=== PATIENT | male | born 1970 | race Caucasian/White ===

== ENCOUNTER 2017-04-28 07:33 | Day surgery (SDC) | payer OTHER ==
--- NOTE | 2017-04-24 13:07 | HP ---
ADMISSION HISTORY AND PHYSICAL: DATE OF SURGERY: 04/28/17 PATIENT OF: Dr. Geo Fortune. (DICTATED BY JONES MUNOZ) CHIEF COMPLAINT: Left inguinal hernia and umbilical hernia. HISTORY OF PRESENT ILLNESS: Mr. Costello is a pleasant 47-year-old gentleman who was seen in the office earlier this month to discuss hernia repair. The patient apparently had left groin hernia that he noticed for the last 2 years for which he was self referred to get it repaired. The patient notes that he had the hernia for quite a while and noticed that it has gotten bigger lately but denied any changes in the bowel habits, abdominal distension, or any other associated symptoms. He had a right inguinal hernia repaired about 10 years ago. He was also noted to have an umbilical hernia on exam for which a CT scan of the abdomen and pelvis was obtained, a week after his initial visit. The patient was seen by Dr. Fortune after his CT scan and the patient was found to have a third spigelian hernia on the left side for which he returned to the office to discuss hernia repair. Since his last office visit, the patient denies any changes. He is still able to reduce his left groin hernia and noticed that it bulged more often when he strains or lifts anything heavy at work. He still is able to move his bowel and denies any changes in his bowel habits, nausea, vomiting or any other associated symptoms. He presented to the office today to discuss surgery. 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 He is otherwise an extremely healthy middle-aged gentleman with no significant past medical history. PAST MEDICAL HISTORY: Essentially unremarkable. He denies any history of lung , liver, heart or kidney disease. PAST SURGICAL HISTORY: Significant for: 1. Right inguinal hernia repair with mesh, approximately 10 years ago. 2. He also reports for separate right knee arthroscopic surgeries back at high school and college time since he was athletic, playing football and baseball. CURRENT MEDICATIONS: None. ALLERGIES: He has no known drug allergies. SOCIAL HISTORY: The patient is a current smoker who smokes about half-a-pack per day for the past 10 years. He consumes alcohol on a regular basis. He denies illicit drug use. FAMILY HISTORY: Noncontributory. REVIEW OF SYSTEMS: See HPI, otherwise negative. He denies any headache, dizziness, blurred vision, or syncope. No chest pain, cough, wheezes, or shortness of breath. No palpitation or history of pneumonia, no back pain, flank pain, dysuria, hematuria or urinary frequency. He admits to left inguinal hernia as well as umbilical hernia with occasional mild tenderness to the area, but still able to reduce the hernia and denies any changes in the bowel habits, nausea, vomiting. No fever, chills, night sweats or recent weight loss. PHYSICAL EXAMINATION GENERAL: He is a pleasant healthy appearing 47-year-old gentleman in no acute distress or discomfort. VITAL SIGNS: Vitals revealed a blood pressure of 132/90, a temperature of 97.4 , pulse of 76, respirations of 16 and BMI of 27. HEENT: Sclerae anicteric. PERRLA, EOMs intact. Oropharynx is pink and moist with no exudate. NECK: Supple, trachea midline. No cervical adenopathy, thyromegaly or JVD. LUNGS: Clear to auscultation bilaterally. No rales, wheezes or rhonchi noted. HEART: Regular rate and rhythm. Normal S1 and S2 without rubs, murmurs or gallops. BACK: Normal curvature. No CVA tenderness. ABDOMEN: Soft, nontender and nondistended. There is an obvious left groin hernia noted that was moderate in size and easily reducible. There is very mild tenderness noted upon reducing the hernia. There is also a questionable hernia just above the left groin line that was again confirmed to be a left spigelian hernia on CT scan obtained earlier this month. There is also a small reducible fat containing umbilical hernia that was noted. The right inguinal hernia was a well- healed oblique incision and no evidence of recurrent hernia or swelling. EXTREMITIES: Without cyanosis, clubbing or edema. NEUROLOGIC: Grossly intact. RECTAL: Deferred at this time. IMPRESSION: 1. A 47-year-old gentleman with left inguinal hernia, moderate in size which is reducible and shows no evidence of incarceration of strangulation. 2. Umbilical hernia, small, and appears to be a fat containing. 3. A CT scan with evidence of spigelian hernia in the left abdominal wall. PLAN: We went on to discuss with the patient the findings of his physical exam as well as his CT scan that recommendation for him was to undergo a laparoscopic repair of the left inguinal hernia as well as the left spigelian hernia. We also discussed fixing the umbilical hernia which appears to be very small and could be fixed as a part of a trocar incision. He is well informed and wishes to proceed with the surgery as outlined. The rationale indications, risks, and benefits of performing the hernia repairs were discussed with him today. Risks include but not limited to infection, bleeding, or injury to adjacent structures. He also understands weight lifting limitation that would be expected after such a surgery, which would include 2 to 6 weeks limitation of weight lifting. We discussed with him all possible complications also related to anesthesia. The patient is again well informed and wishes to proceed with surgery and we will follow him up a week after his surgery. [facility] JONES BLEDSOE [id number]/CPS #: [id number] BINTA
[~2017-04-28 07:33] MED LIST: Buffered Lidocaine 0.9% SYRIN* 5 ML/SYR SYRINGE INTRADERM ONE; Buffered Lidocaine 0.9% SYRIN* 5 ML/SYR SYRINGE ONE; Famotidine IV* 10 MG/ML 2 ML (20 mg) IV ONE; Famotidine IV* 10 MG/ML 2 ML (20 mg) ONE; ceFAZolin 2 GM PREMIX(*) 2 GM/50 ML BAG IVPB ONE
[2017-04-28] MEDS ORDERED: Lidocaine 2% PF * 5 ML VIAL ONE (08:25)
[2017-04-28] MEDS ORDERED: Ketorolac INJ* 30 MG/ML 1 ML VIAL ONE (08:25)
[2017-04-28] MEDS ORDERED: Ondansetron INJ* 2 MG/ML VIAL ONE (08:25)
[2017-04-28] MEDS ORDERED: Midazolam* 1 MG/ML 5 ML VIAL (5 MG) ONE (08:25)
[2017-04-28] MEDS ORDERED: Succinylcholine* 20 MG/ML 10 ML VIAL ONE (08:25)
[2017-04-28] MEDS ORDERED: Dexamethasone IV* 4 MG/ML 1 ML (4 MG) ONE (08:25)
[2017-04-28] MEDS ORDERED: Propofol* 10 MG/ML 20 ML BTL IV PUSH ONE (08:25)
[2017-04-28] MEDS ORDERED: fentaNYL* 50 MCG/ML 2 ML VIAL (100 MCG VIAL) ONE ×2 (08:26→09:50)
[2017-04-28] MEDS ORDERED: Bupivacaine 0.25% EPI 200,000* 30 ML SDV ONE ×2 (09:02→13:36)
[2017-04-28] MEDS ORDERED: Rocuronium* 10 MG/ML VIAL ONE ×3 (09:29→11:37)
[2017-04-28] MEDS ORDERED: Midazolam* 1 MG/ML 2 ML VIAL (2 MG) ONE (09:37)
[2017-04-28] MEDS ORDERED: DiMENhydriNATE IV* 50 MG/ML VIAL IV PUSH PRN (10:09)
[2017-04-28] MEDS ORDERED: fentaNYL* 50 MCG/ML 5 ML VIAL (250 MCG VIAL) ONE (10:43)
[2017-04-28] MEDS ORDERED: HYDROmorphone* 1 MG/ML 1 ML SYR ONE ×3 (10:46→14:08)
[2017-04-28] MEDS ORDERED: oxyCODONE/Acetamin 5/325 MG* TAB PO PRN (14:03)
[2017-04-28] MEDS ORDERED: oxyCODONE/Acetamin 5/325 MG* TAB ONE (14:08)
[2017-04-28] MEDS: HYDROmorphone* 1 MG/ML 1 ML SYR IV PRN ×5 (14:14→14:57)
[2017-04-28] MEDS: oxyCODONE/Acetamin 5/325 MG* TAB PO PRN ×2 (14:20→14:58)
[2017-04-28 16:01] VITALS: BP 137/97
--- NOTE | 2017-04-29 08:21 | OP ---
DATE OF OPERATION: 04/28/17 [facility] DATE OF : 68 SURGEON: Geo Fortune MD LAST SAWYER: JONES Bowser ANESTHESIOLOGIST: Yoly Stewart MD ANESTHESIA: General with local. PRE-OP DIAGNOSES: 1. Umbilical hernia. 2. Left inguinal hernia. 3. Left spigelian hernia. POST-OP DIAGNOSES: 1. Umbilical hernia. 2. Left spigelian hernia. 3. Left direct inguinal hernia. OPERATIVE PROCEDURE: 1. Open primary repair of the small umbilical hernia. 2. Laparoscopic primary repair of a small left spigelian hernia. 3. Open repair of a left direct inguinal hernia with Covidien ProGrip mesh after unsuccessful attempt at a laparoscopic totally extraperitoneal repair. URINE OUTPUT: 300 cc. SPECIMENS: None. COMPLICATIONS: None. DRAINS: None. WOUND CLASSIFICATION: I. DESCRIPTION OF PROCEDURE: Written and informed consent was obtained, the abdomen and groin were marked with indelible ink, and the patient was taken to the operating room and placed in the supine position. Sequential compression devices and a warming blanket were applied. General anesthesia was administered. A Krueger catheter was inserted. The abdomen, pelvis, and groins were both prepped and draped in the usual sterile fashion. A time-out verification was completed. Initial plan was to proceed with a totally extraperitoneal repair of the left inguinal hernia. A small transverse incision was made just below the umbilicus slightly off to the left and the anterior fascia was divided to the left of midline and the muscle was retracted laterally, then posterior sheath was identified. Then using the SpaceMaker Balloon, we passed this down in the extraperitoneum to the pubic tubercle under direct vision. The 10-mm camera was inserted and the SpaceMaker Balloon was infiltrated, was blown up with about 22 squeezes of the hand pump device. The SpaceMaker Balloon was then removed and the extraperitoneal space was insufflated with 10 mmHg. A 12 mm blunt port was inserted through the initial incision and two 5-mm ports were placed in the midline several fingerbreadths above the pubis. We were able to then identify the pubis and the Tristan ligament on the left. The epigastric vessels have been somewhat dissected down and these were easily identified and protected from injury throughout in the anterior abdominal wall. Laterally, the anterior abdominal wall was then developed using graspers to assess anatomy and identify any inguinal hernia sac. Careful evaluation of the indirect space revealed no evidence of an indirect hernia sac, although this was a difficult dissection as there was what appeared to be medial to the epigastric vessel what I felt was a rather large direct hernia with peritoneum extending down, which was quite tight and tense and difficult to grasp and reduce and separate from the surrounding tissues. I was unable to identify safely the vas deferens or the spermatic cord content and really did not identify the margin of peritoneum as it would have been reflected back and after working for a little over an hour and fifteen minutes, thus I made a decision that to proceed would be certainly difficult if not dangerous. I made a decision to proceed with the intraabdominal portion of the repair of the spigelian hernia, also just to see if this would help with the identification of the inguinal hernia. Next, the extraperitoneum was desufflated and incision at the umbilicus was extended semicircular round and the umbilical skin was taken off the small umbilical hernia. This was no more than a centimeter in diameter and we used a 12-mm blunt port through this area and into the peritoneum and the abdomen was insufflated to 15 mmHg. The camera was inserted. It was obvious that there was a significant amount of adhesive disease in the left lower pelvis into the anterior abdominal wall, which includes some of the sigmoid colon. I am not certain the etiology of this is as he had not had any prior intraabdominal surgery, but I was not able to visualize the internal ring or the direct space as were typical to be able to be done with a laparoscope. The right side was visualized. No evidence of any right inguinal hernia and at this point, I felt that trying in another attempt at the laparoscopic approach into the already developed extraperitoneal space would be futile. A 5-mm port was placed in the right lower quadrant and a second 5-mm port was placed in the left upper abdominal wall prior to this dissection. We then turned our attention to the spigelian hernia. This was quite small and the tip in the expected position. It was no more than about a 1.5 cm. There was no fat or bowel, but there appear some preperitoneal fat which I pulled down from the subcutaneous base and this was excised with a LigaSure and placed in an EndoCatch bag and brought out through the larger port sites. We then assessed the possibilities of which mesh to use. The small circular mesh that we have that could be placed was almost 12 cm in diameter and this would extend down into the adhesive portion of the pelvis and it was felt that this would be difficult and even challenging to try to free up the sigmoid colon just that we could obtain a large enough abdominal wall space for the mesh. Since the hernia was quite small, decision was made just to close this primarily using the Endo Close needle. A small transverse incision about a 1.5 cm was made in the anterior abdominal wall and using 3 separate passes of the Endo Close needle, we were able to close the defect with full thickness, 0 Polysorb sutures placed in a transverse orientation, which closed the hernia primarily nicely. Hemostasis was assured. The 5-mm ports were then removed under direct vision. There is no abdominal wall bleeding. The umbilical hernia was then closed primarily as this was quite small with 3 separate interrupted 0 Polysorb suture placed in a transverse orientation. In addition, a small incision made in the anterior rectus sheath was closed with two interrupted 0 Polysorb suture. The subcutaneous tissue was closed with 3-0 and 4-0 Polysorb suture. Our gloves were then changed and we placed a large sterile drape over the abdomen and each incisions and attention was then returned to the left groin, where we planned the open left inguinal hernia repair. An oblique incision was made several fingerbreadths above the inguinal crease, carried down to [place] fascia. The external oblique aponeurosis and the external ring were identified and opened in the direction of its fibers. Here was a large hernia with a significant amount of scar tissue and obviously some fluid from our previous dissection extra-peritoneally. This was very adherent to the spermatic cord and after subcutaneous dissection, it took almost an hour and a half, able to identify a large direct space hernia peritoneal sac that really included almost the entire floor of the direct space. This is apparently what was being seen in the laparoscopic approach. The spermatic cord was carefully evaluated. There was a small cord lipoma, which was excised and not sent for pathology. The vas deferens was identified and protected from injury throughout. I did not identify any indirect inguinal hernia. Next, I imbricated the direct space with several interrupted 3-0 Polysorb sutures in preparation for my mesh placement. A Covidien precut ProGrip mesh was then placed and sutured into position at the pubic tubercle medially, the conjoined tendon superiorly, and the musculature laterally with interrupted 0 Polysorb suture. It was secured to the inguinal ligament inferiorly with a running 0 Polysorb suture. The mesh sat nicely, reconstructed the inguinal ring well and without tension. Hemostasis was then assured. The external oblique aponeurosis was closed with a running 3-0 Polysorb suture. The [place] fascia was closed with interrupted 3- 0 Polysorb suture. The skin was approximated with a subcuticular 4-0 Polysorb suture. Steri-Strips and sterile dressings were applied. The patient tolerated the procedure well, was taken to the recovery room in stable condition. [id number]/CPS #: [id number] BINTA
== END 2017-04-28 16:59 | disposition home or self-care (01) ==
LOC: OR 07:33
PROVIDERS: ATTEND Surgery
DX: K43.9 Ventral hernia without obstruction or gangrene (principal); K40.90 Unilateral inguinal hernia, without obstruction or gangrene, not specified as recurrent; K42.9 Umbilical hernia without obstruction or gangrene; F17.210 Nicotine dependence, cigarettes, uncomplicated
CPT/HCPCS: A9270-GY; C1776; J0330; J0690; J1100; J1170; J1885; J2250; J2405; J2704; J3010

== ENCOUNTER 2017-05-01 22:38 | Observation (INO) | payer OTHER ==
[2017-05-02] MEDS ORDERED: Ondansetron INJ* 2 MG/ML VIAL IV ONE (01:25)
[2017-05-02] MEDS ORDERED: HYDROmorphone* 1 MG/ML 1 ML SYR IV ONE (01:25)
[2017-05-02] MEDS ORDERED: NS 0.9% 1000 ML* 1,000 ML IV ONE (01:25)
[2017-05-02 02:11] LABS: Hematocrit 42 % (42-52); Hemoglobin 14.2 g/dl (14.0-18.0); Mean Corpuscular HGB Conc 34 g/dl (31-36); Mean Corpuscular Hemoglobin 32 pg (27-31); Mean Corpuscular Volume 94 fL (80-94); Mean Platelet Volume 9 um3 (7.4-10.4); Red Blood Count 4.48 10^6/ul (4.0-5.4); Red Cell Distribution Width 13 % (10.5-15); White Blood Count 10.1 10^3/ul (3.5-10.8)
[2017-05-02 02:22] LABS: Albumin 3.6 g/dL (3.2-5.2); BUN/Creatinine Ratio 15.9 (8-20); C Reactive Protein 130.73 mg/L (< 5.00); Calcium 9.3 mg/dL (8.6-10.3); EGFR Non-African American 100.3 (>60); Globulin 3.1 g/dL (2-4); Potassium 3.4 mmol/L (3.5-5.0); Total Bilirubin 0.7 mg/dL (0.2-1.0); Total Protein 6.7 g/dL (6.4-8.9)
[2017-05-02] MEDS ORDERED: oxyCODONE/Acetamin 5/325 MG* TAB PO PRN (02:50)
[2017-05-02] MEDS ORDERED: Ondansetron INJ* 2 MG/ML VIAL IV PRN (02:50)
[2017-05-02] MEDS ORDERED: HYDROmorphone* 1 MG/ML 1 ML SYR IV PRN (02:50)
--- NOTE | 2017-05-02 02:58 | ED ---
Sudhir Pandya Alok, scribed for Dottie Tolentino MD on 05/02/17 at 0129 . ED Suture/Wound Check - HPI Summary HPI Summary: 47M presents with groin pain, erythema, and swelling since yesterday. Pt states that he recently had a hernia repair x3 on the left side [address] Fortune. Pt states he woke up yesterday with testicular swelling and diaphoresis. Pt also notes left leg numbness and hand tingling/numbness bilaterally. Pt took percocet at 1999. PSHx includes an additional hernia repair on the right side 15 years ago. Pt smokes tobacco. Pt had abd/pel CT at [place] preliminary report 05/01/17: "pneumomediastinal, ? pneumopericardium extending out of field of view. Subcutaneous, umbilical and intraperitoneal air-?post laproscopy. Complex fluid collection and air within left inguinal canal to left testicle-phlegmon. Phlegmon left pelvic wall continuous with inguinal collection. Intravesicular air." - History Of Current Complaint Chief Complaint: EDGeneral Stated Complaint: POST HERNIA REPAIR/SWOLLEN TESTICLES Hx Obtained From: Patient Onset/Duration: Lasting Hours, Still Present Surgical Site: hernia repair x3 left side suprapubic region Severity: Moderate Pain Intensity: 7 Pain Scale Used: 0-10 Numeric Surgery Date: 04/28/17 - Allergies/Home Medications Allergies/Adverse Reactions: Allergies Allergy/AdvReac Type Severity Reaction Status Date / Time No Known Allergies Allergy Verified 05/01/17 22:59 Home Medications: Home Medications oxyCODONE/Acetamin 5/325 MG* [Percocet 5/325 TAB*] 1 tab PO Q6HR PRN MDD 6 05/02 [History Confirmed 05/02/17] PMH/Surg Hx/FS Hx/Imm Hx Endocrine/Hematology History: Denies: Hx Diabetes Cardiovascular History: Denies: Hx Hypertension, Other Cardiovascular Problems/Disorders Respiratory History: Denies: Other Respiratory Problems/Disorders GI History: Denies: Other GI Disorders History: Denies: Hx Renal Disease Musculoskeletal History: Denies: Other Musculoskeletal History Sensory History: Denies: Hx Contacts or Glasses, Hx Hearing Aid Opthamlomology History: Denies: Hx Contacts or Glasses Neurological History: Denies: Other Neuro Impairments/Disorders - Surgical History Surgery Procedure, Year, and Place: ARTHROSCOPIC KNEE SURGERY bilateral,x on each knee HERNIA REPAIR right Hx Anesthesia Reactions: No Infectious Disease History: No Infectious Disease History: Denies: History Other Infectious Disease, Traveled Outside the [place] in Last 30 Days - Family History Known Family History: Positive: Other - no FH of cancers. Both parents are living and healthy. - Social History Occupation: Employed Full-time Alcohol Use: Daily Alcohol Amount: social Substance Use Type: Reports: None Smoking Status (MU): Current Every Day Smoker Type: Cigarettes Amount Used/How Often: 1 PPD x 6 years Review of Systems Negative: Fever Genitourinary: Other - left testicular swelling. groin pain. erythema. Positive: Numbness All Other Systems Reviewed And Are Negative: Yes Physical Exam Triage Information Reviewed: Yes Vital Signs On Initial Exam: Initial Vitals Temp Pulse Resp BP Pulse Ox 98.3 F 85 16 120/89 100 05/01/17 22:50 05/01/17 22:50 05/01/17 22:50 05/01/17 22:50 05/01/17 22:50 Vital Signs Reviewed: Yes Appearance: Positive: Well-Appearing, No Pain Distress Skin: Positive: Warm, Skin Color Reflects Adequate Perfusion, Dry Eyes: Positive: EOMI, CHANG ENT: Positive: Pharynx normal, TMs normal Neck: Positive: Supple, Nontender Respiratory/Lung Sounds: Positive: Clear to Auscultation, Breath Sounds Present. Negative: Rales, Rhonchi, Wheezes Cardiovascular: Positive: RRR, Other - no gallop. Negative: Murmur, Rub Abdomen Description: Positive: Nontender, Soft, Other: - no rebound. Negative: Distended, Guarding Bowel Sounds: Positive: Present Male Genital Exam: Positive: other - Left testicular swelling. Hematoma mons pubis area. Hematoma mons pubis area. Musculoskeletal: Positive: Strength/ROM Intact. Negative: Edema Left, Edema Right Neurological: Positive: Sensory/Motor Intact, Alert, Oriented to Person Place, Time, CN Intact II-III Psychiatric: Positive: Affect/Mood Appropriate - Nori Coma Scale Coma Scale Total: 15 Diagnostics - Vital Signs Vital Signs Temp Pulse Resp BP Pulse Ox 05/02/17 01:05 99.2 F 90 16 128/94 98 05/02/17 01:00 99.2 F 89 16 128/94 96 05/02/17 00:59 89 97 05/02/17 00:57 138/91 05/02/17 00:15 99.6 F 97 16 139/101 98 05/01/17 22:50 98.3 F 85 16 120/89 100 - Laboratory Lab Results: Lab Results 05/02/17 05/02/17 05/02/17 Range/Units 01:55 01:55 01:55 WBC 10.1 (3.5-10.8) 10^3/ul RBC 4.48 (4.0-5.4) 10^6/ul Hgb 14.2 (14.0-18.0) g/dl Hct 42 (42-52) % MCV 94 (80-94) fL MCH 32 H (27-31) pg MCHC 34 (31-36) g/dl RDW 13 (10.5-15) % Plt Count 186 (150-450) 10^3/ul MPV 9 (7.4-10.4) um3 Neut % (Auto) 74.1 (38-83) % Lymph % (Auto) 12.9 L (25-47) % [place] % (Auto) 10.6 H (1-9) % Eos % (Auto) 1.9 (0-6) % Baso % (Auto) 0.5 (0-2) % Absolute Neuts (auto) 7.5 (1.5-7.7) 10^3/ul Absolute Lymphs (auto) 1.3 (1.0-4.8) 10^3/ul Absolute Monos (auto) 1.1 H (0-0.8) 10^3/ul Absolute Eos (auto) 0.2 (0-0.6) 10^3/ul Absolute Basos (auto) 0.1 (0-0.2) 10^3/ul Absolute Nucleated RBC 0 10^3/ul Nucleated RBC % 0 Sodium 135 (133-145) mmol/L Potassium 3.4 L (3.5-5.0) mmol/L Chloride 101 (101-111) mmol/L Carbon Dioxide 28 (22-32) mmol/L Anion Gap 6 (2-11) mmol/L BUN 13 (6-24) mg/dL Creatinine 0.82 (0.67-1.17) mg/dL Est GFR ( Amer) 129.0 (>60) Est GFR (Non-Af Amer) 100.3 (>60) BUN/Creatinine Ratio 15.9 (8-20) Glucose 149 H (70-100) mg/dL Lactic Acid 1.0 (0.5-2.0) mmol/L Calcium 9.3 (8.6-10.3) mg/dL Total Bilirubin 0.70 (0.2-1.0) mg/dL AST 50 H (13-39) U/L ALT 49 (7-52) U/L Alkaline Phosphatase 50 (34-104) U/L C-Reactive Protein 130.73 H (< 5.00) mg/L Total Protein 6.7 (6.4-8.9) g/dL Albumin 3.6 (3.2-5.2) g/dL Globulin 3.1 (2-4) g/dL Albumin/Globulin Ratio 1.2 (1-3) Lipase 57 (11.0-82.0) U/L Result Diagrams: 05/02/17 01:55 05/02/17 01:55 Lab Statement: Any lab studies that have been ordered have been reviewed, and results considered in the medical decision making process. Course/Dx - Course Course Of Treatment: case discussed with Dr. Garner who reviewed the CT agrees with admission, meropenum given to cover pt. Of note pt not ill appearing, unclear if fluid collection is phlegmon vs. post op hemo-serous, air may be due to insufflation during surgery. Pt is agreeable with plan - Clinical Impression Provider Diagnoses: Post-operative complication - Physician Notifications Discussed Care Of Patient With: Carlos A Garner - discussed pt hx and condition Time Discussed With Above Provider: 02:10 - Pt admited @ 0253 Discharge - Discharge Plan Condition: Stable Disposition: ADMITTED TO [facility] Referrals: No Primary Care Phys,NOPCP [Primary Care Provider] - The documentation as recorded by the Sudhir roberts Alok accurately reflects the service I personally performed and the decisions made by me, Dottie Tolentino MD.
[2017-05-02] MEDS ORDERED: Meropenem 1 GM PREMIX(*) 1 GM/50 ML BAG IV ONE (03:30)
[2017-05-02 03:59] LABS: Urine Bilirubin Negative (Negative); Urine Glucose Negative (Negative); Urine Nitrite Negative (Negative)
[2017-05-02] MEDS: ceFAZolin 2 GM PREMIX(*) 2 GM/50 ML BAG IVPB SCH ×2 (04:01→12:07)
[2017-05-02] MEDS ORDERED: Magnesium Hydroxide LIQ* 30 ML UDC PO PRN (08:54)
[2017-05-02] MEDS ORDERED: Ketorolac INJ* 30 MG/ML 1 ML VIAL IV PUSH PRN (08:54)
[2017-05-02] MEDS: oxyCODONE/Acetamin 5/325 MG* TAB PO PRN ×2 (10:19→15:40)
--- NOTE | 2017-05-02 10:49 | HP ---
HISTORY AND PHYSICAL: DATE OF ADMISSION: 05/02/17 REASON FOR ADMISSION: Left groin discomfort, concern for incisional redness. HISTORY OF PRESENT ILLNESS: Mr. Sami Costello is a 47-year-old gentleman who is essentially healthy, who underwent an elective umbilical, left spigelian and left inguinal hernia repair on this past 04/28/17, here at [facility]. Initially, the inguinal hernia was attempted to be repaired with the laparoscope using the TEP method. However, this was converted to an open repair due to extensive amount of scar tissue and inability to identify the critical structures and hernia sac. At the open technique, I noted there was a large direct hernia that was repaired with an onlay mesh. In addition, he underwent a primary repair of a very small spigelian hernia laparoscopically that was done intraperitoneally as well as primary repair of very small umbilical hernia that was done at the closure of the case. In summary, he underwent an attempted totally extraperitoneal left inguinal hernia repair with conversion to an open left inguinal hernia repair. He had a transabdominal primary repair of a small spigelian hernia and an open primary repair of an umbilical hernia. He did well and was discharged home. I talked with him on Friday as he had a little bit of ecchymosis around the umbilical incision, but this was not bleeding and had not changed. He had been living in [place], [place], where his mother lives as he does not have a permanent home here in the [facility] and apparently he had developed some increased discomfort in the left groin and some scrotal swelling. He presented to the emergency room in [place], [place], at [facility]. There he was noted to have normal white blood cell count. No fever, tachycardia. There was concern of a little bit of erythema in the left groin. He underwent a CT scan of the abdomen and pelvis, which I did review these images. This does show a small amount of free intraperitoneal air in the upper abdomen, some extraperitoneal air, small amount of air in the bladder as well as some air in the subcutaneous space about the left inguinal hernia repair in addition to swelling, but no obvious abscess. There does not appear to be any intraperitoneal abscess, fluid, or abnormality noted. He was transferred here to the [facility] Emergency Room and once again repeat laboratory values were unremarkable. He had no fever or tachycardia, but due to his concern about some erythema in the incision, he was admitted early this morning to the surgical service. PAST MEDICAL HISTORY: Unremarkable. PAST SURGICAL HISTORY: 1. Open right inguinal hernia repair with mesh. 2. Hernia repairs as described above. 3. Knee arthroscopic surgery. MEDICATIONS: Include Percocet for discomfort. Otherwise, he has no chronic medications. ALLERGIES: He has no known drug allergies. SOCIAL HISTORY: He is a current smoker about a half pack per day. Drinks alcohol on a regular basis. He denies illicit drug abuse. 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 REVIEW OF SYSTEMS: Cerebrovascular: He has had no dizziness or visual disturbance. Cardiovascular: He has had no chest pain, shortness of breath. Constitutional: He says he has had some sweats in the middle to the night two nights ago, but he has had no fevers. He has not been able to check his temperature. He has had no shakes or chills. : He has had no urgency and he has been urinating well. He has had no hematuria. GI: He has been passing flatus. He has not had a bowel movement since the day of surgery. He has had no nausea or vomiting. He has been eating well. PHYSICAL EXAMINATION GENERAL: In general, he is a well-developed, well-nourished male sitting in bed , appears to be in no apparent distress. He is quite alert, conversive, and quite pleasant. VITAL SIGNS: Temperature 98.4, pulse 63, respirations 10, blood pressure 134/ 78. HEENT: His oral mucosa is moist. Trachea was midline. LUNGS: Clear to auscultation. I appreciate no crepitance or subcutaneous air. HEART: Regular rate and rhythm without murmurs, rubs, gallops. ABDOMEN: Soft and nondistended. He had some ecchymosis surrounding the umbilicus for about 3 cm, but the incision is clean, dry, intact with Steri- Strips in place. He had several port sites on the left and the right side of the abdomen with a small amount of ecchymosis. No redness or abscess. He had normoactive bowel sounds throughout. In the left groin, he has an oblique incision. This was intact with Steri- Strips in place. He had some expected swelling in this area down into the groin and extending down to the scrotum where there is some ecchymosis and firmness along the spermatic cord in the upper portion of the testicle. Both testicles are present in the scrotum and the left is mildly tender. There is no swelling in the left anterior left thigh. There is maybe a faint erythematous area, but it is almost "squared off," which may be related to tape , but there is no warmth or tenderness in the skin. There is no purulence, fluctuance or obvious abscess. EXTREMITIES: Showed no cyanosis or edema. He has full strength in the femoral nerve distribution in the left as well. LABORATORY DATA: Repeat laboratory workup here included a white blood cell count of 10,000. Electrolytes: BUN and creatinine were within normal limits. He had a C-reactive protein of 130, lactic acid was 1. Urinalysis was completely unremarkable. IMPRESSION: Status post three hernias that were repaired this past Friday, the largest of which is a chronic left direct inguinal hernia with mesh. He appeared to have some continuing discomfort despite taking Percocet, but is not taking so much ibuprofen. He has had no fevers, shakes, or chills. No tachycardia. Laboratory workup is unremarkable. I did review the CT scan. I think the CT scan represents what I would expect at postoperative day #4 with some air in the appropriate places from port placement, mesh insertion, and open dissection. I appreciate no intraperitoneal abscess or fluid to suggest visceral injury. In addition, I am not convinced that he has true erythema or cellulitis of the left groin, but he was started on Ancef last night. PLAN: 1. We will observe the patient here in the hospital. Right now, he has no reliable form of transportation nor does he have a local address and has been staying with his mother in [place]. For this reason, we will keep him here today for continued observation. 2. We will start to advance his diet to regular. 3. We will give him Percocet and Toradol for analgesia. 4. Mild of magnesia will be given as needed for his constipation, which is to be expected. 5. I will continue the Ancef; however, I do not believe there is any true infection here, but we will continue this for 24 hours and see this course, and if he could be discharged home later today or tomorrow with a normal white count and no further fever, then we will discontinue antibiotics at that time. 6. At this point, I do not feel that there is any surgical intervention or drainage procedure necessary as I do not believe there is an abscess and I suspect with the extent of the dissection, that the fluid and edema as well as swelling is to be expected at this point and we will follow him closely. I discussed all of the above with him in detail and answered his questions to the best of my ability. [id number]/[facility] #: [id number] BINTA
[2017-05-02 12:00] VITALS: BP 143/93
== END 2017-05-02 16:01 | disposition home or self-care (01) ==
LOC: ED 22:38 → SSU 05-02 02:50
PROVIDERS: ADMIT Surgery; ATTEND Surgery
DX: R10.9 Unspecified abdominal pain (principal); N50.89 Other specified disorders of the male genital organs; Z98.890 Other specified postprocedural states; F17.210 Nicotine dependence, cigarettes, uncomplicated
CPT/HCPCS: 36415; 80053; 81003; 83605; 83690; 85025; 86140; 96365; 96366; 96375; 96376; 99285; 99406; A9270-GY; G0378; J0690; J1170; J1885; J2185; J2405

== ENCOUNTER 2019-05-24 05:39 | Day surgery (SDC) | payer BC ==
--- NOTE | 2019-05-18 10:57 | HP ---
AMENDED REPORT NOW INCLUDES DESIGNATED COSIGNER PREOPERATIVE HISTORY AND PHYSICAL: DATE OF OFFICE VISIT: 05/18/19 DATE OF SURGERY/ADMISSION: 05/24/19 ATTENDING SURGEON: Dr. Geo Fortune * (dictated by Jessica Reeves NP). CHIEF COMPLAINT: Pain, left lateral abdominal wall. HISTORY OF PRESENT ILLNESS: The patient is a 49-year-old male known to Dr. Fortune from previous laparoscopic primary repair of a left Spigelian hernia on 04/28/17. He returned to our office on 03/28/19 for evaluation of pain in the left lateral abdominal wall over the site of the left Spigelian hernia repair. The patient stated that he fell off a roof while working about 6 months ago and has been having discomfort since then and has occasionally noticed a lump in that area. He denies any nausea, vomiting, or abdominal distention. He underwent an ultrasound of the left lateral abdominal wall, and this does show a small hernia consistent with a recurrent Spigelian hernia. Dr. Fortune examined the patient and has recommended open left ventral Spigelian hernia repair with mesh as a same- day surgery procedure. Dr. Fortune discussed the nature of the surgical procedure, the rationale for the procedure, the use of mesh, the relevant risks and benefits, and today I reviewed the expected postoperative care and recovery. The patient has had a chance to ask questions and stated that he understands the information and is satisfied with the answers given to his questions. He will sign surgical consent on the day of surgery. PAST MEDICAL HISTORY: Significant for smoking. PAST SURGICAL HISTORY: Open primary repair of small umbilical hernia, laparoscopic primary repair of small left Spigelian hernia and open left inguinal hernia with mesh all at the same setting 04/28/[address] Fortune. MEDICATIONS: None. ALLERGIES: No known drug allergies. FAMILY HISTORY: No known anesthesia complications, bleeding tendencies, or clotting disorders. SOCIAL HISTORY: He lives with his female partner. He is a current smoker who smokes every day. He drinks alcohol approximately 18 drinks per week and is employed as a vendor specialist. He denies the use of other substances. REVIEW OF SYSTEMS: Constitutional: No fever, chills, excessive fatigue, or weight loss. Endocrine: No diabetes or thyroid disease. Hematologic: No easy bruising or bleeding; no history of blood transfusions. Respiratory: He is a smoker and has a chronic dry cough. No dyspnea on exertion. No hemoptysis. Cardiovascular: No anginal chest pain or palpitations. Gastrointestinal: No nausea, vomiting, diarrhea, GI bleeding, or constipation. No abdominal distention. No change in bowel habits. Genitourinary: No dysuria. Musculoskeletal: Normal strength and tone. Integumentary: No chronic rashes or skin changes. Neurologic: No headache or blurred vision or areas of focal weakness. General: No history of deep vein thrombosis or pulmonary embolism. No previous anesthesia complications. No history of MRSA. PHYSICAL EXAMINATION GENERAL: The patient is a 49-year-old male, well developed, well nourished, in no acute distress. Height 69 inches, weight 180 pounds. Body mass index 26.6. VITAL SIGNS: Blood pressure 132/88, pulse 54 and regular, respiratory rate 12, temperature 98.8 tympanic. HEENT: Benign. NECK: Supple. No cervical lymphadenopathy. No carotid bruits. BACK: No CVA tenderness. LUNGS: Breath sounds bilaterally clear and equal. HEART: Regular rate and rhythm. No murmurs or rubs appreciated. ABDOMEN: Active bowel sounds. Soft, nondistended, and nontender; a well- healed umbilical and left groin oblique incision; a small transverse incision lateral to the rectus muscle on the left, and just lateral to this, there is a small fascial defect with an easily reducible, mildly tender left Spigelian hernia. GENITALIA: Deferred. RECTAL: Deferred. EXTREMITIES: Warm without edema or skin ulceration. NEUROLOGIC: Alert and oriented x3. Steady gait. SKIN: Warm, dry, intact. IMPRESSION: Recurrent left ventral Spigelian hernia. PLAN: Same-day surgery admission to Dr. Fortune's service on 05/24/19 , for open left ventral/Spigelian hernia repair with mesh. ARSH REEVES, JULIETA [id number]/[facility] #: [id number] MTDD
[~2019-05-24 05:39] MED LIST changes: -Buffered Lidocaine 0.9% SYRIN* 5 ML/SYR SYRINGE INTRADERM ONE; -Buffered Lidocaine 0.9% SYRIN* 5 ML/SYR SYRINGE ONE; +Buffered Lidocaine 1% SYRIN* 1 ML/SYRINGE INTRADERM ONE; -Famotidine IV* 10 MG/ML 2 ML (20 mg) IV ONE; -Famotidine IV* 10 MG/ML 2 ML (20 mg) ONE; -ceFAZolin 2 GM PREMIX(*) 2 GM/50 ML BAG IVPB ONE
[2019-05-24] MEDS ORDERED: ceFAZolin 2 GM in NS PREMIX(*) 2 GM/100 ML BAG IVPB ONE (05:59)
[2019-05-24] MEDS ORDERED: Buffered Lidocaine 1% SYRIN* 1 ML/SYRINGE INTRADERM ONE (05:59)
[2019-05-24] MEDS ORDERED: Dexamethasone IV* 4 MG/ML 1 ML (4 MG) ONE (05:59)
[2019-05-24] MEDS ORDERED: Famotidine IV* 10 MG/ML 2 ML (20 mg) ONE (05:59)
[2019-05-24] MEDS ORDERED: Dexamethasone IV* 4 MG/ML 1 ML (4 MG) IV SLOW PU ONE (06:00)
[2019-05-24] MEDS ORDERED: Lactated Ringers 1000 ML Bag* 1,000 ML IV SCH (06:00)
[2019-05-24] MEDS ORDERED: Famotidine IV* 10 MG/ML 2 ML (20 mg) IV ONE (06:00)
[2019-05-24] MEDS ORDERED: DiMENhydriNATE IV* 50 MG/ML VIAL IV PUSH PRN (07:17)
[2019-05-24] MEDS ORDERED: Naloxone* 0.4 MG/ML 1 ML VIAL IV PRN (07:17)
[2019-05-24] MEDS ORDERED: HYDROcodone/ACETAMIN 5-325 MG* 1 TAB PO PRN (07:17)
[2019-05-24] MEDS ORDERED: Bupivacaine 0.5% W/EPI SDV* 30 ML VIAL ONE (07:17)
[2019-05-24] MEDS ORDERED: Lidocaine 1% INJ* 10 MG/ML 30 ML SDV ONE (07:17)
[2019-05-24] MEDS ORDERED: oxyCODONE/Acetamin 5/325 MG* TAB PO PRN (07:17)
[2019-05-24] MEDS ORDERED: fentaNYL* 50 MCG/ML 2 ML VIAL (100 MCG VIAL) IV PRN (07:17)
[2019-05-24] MEDS ORDERED: Bupivacaine 0.25% SDV PF* 10 ML VIAL INJ ONE (07:18)
[2019-05-24] MEDS ORDERED: Midazolam* 1 MG/ML 5 ML VIAL (5 MG) ONE (07:25)
[2019-05-24] MEDS ORDERED: fentaNYL* 50 MCG/ML 2 ML VIAL (100 MCG VIAL) ONE (07:25)
[2019-05-24] MEDS ORDERED: Propofol* 10 MG/ML 20 ML BTL ONE (07:30)
[2019-05-24] MEDS ORDERED: Lidocaine 2% PF * 5 ML VIAL ONE (07:30)
[2019-05-24] MEDS ORDERED: Ketorolac INJ* 30 MG/ML 1 ML VIAL ONE (07:42)
[2019-05-24] MEDS ORDERED: EPHEDrine (Pressors)* 50 MG/ML VIAL ONE (08:46)
[2019-05-24] MEDS ORDERED: Ondansetron INJ* 2 MG/ML VIAL ONE (08:55)
[2019-05-24 10:31] VITALS: BP 129/96
--- NOTE | 2019-05-24 17:01 | OP ---
DATE OF OPERATION: 05/24/19 - [facility] DATE OF : 68 SURGEON: Geo Fortune MD. SETTER HELPER: Jessica Reeves NP. ANESTHESIOLOGIST: Dr. Maxwell. ANESTHESIA: General with local. PRE-OP DIAGNOSIS: Recurrent left spigelian hernia. POST-OP DIAGNOSIS: Recurrent left spigelian hernia. OPERATIVE PROCEDURE: Open repair with mesh of a left recurrent spigelian hernia. WOUND CLASSIFICATION: I. COMPLICATIONS: None. DRAINS: None. SPECIMENS: None. BRIEF HISTORY: Mr. aSmi Costello is a 49-year-old gentleman who had undergone a laparoscopic primary repair of a spigelian hernia during a laparoscopic left inguinal hernia repair several years ago. He has developed a recurrence and ultrasound has confirmed a fat-containing hernia in the space in the location of the abdominal wall consistent with spigelian hernia. He is now to undergo an elective repair. DESCRIPTION OF PROCEDURE: Written informed consent was obtained, the abdomen was marked with indelible ink, and preoperative antibiotics were administered. The patient was taken to the operating room and placed in the supine position. Sequential compression devices and a warming blanket were applied. Anesthesia was administered and the abdomen was prepped and draped in the usual sterile fashion. Time-out verification was completed. Marcaine 0.25% mixed with 1% lidocaine plain was infiltrated in the left lower abdominal wall and a transverse incision was made lateral to the rectus muscle overlying a previous scar and carried down through the subcutaneous tissue. The external oblique aponeurosis was identified and opened in the direction of its fibers. Dissection continued through the abdominal wall with muscle splitting location to identify a fat-containing fascial defect, which included a peritoneal sac with some intraperitoneal fat included. There was no bowel involvement. It was necessary to excise some of the redundant peritoneum and I did enter the peritoneal cavity. No bowel was involved. Once this was complete, I primarily closed the peritoneum with a running 3-0 locked Vicryl suture. The extraperitoneal space just superficial to the peritoneum was then developed using blunt and sharp dissection in preparation for the mesh placement. I then placed a 1.7 inch round Bard dual-coated mesh into the extraperitoneal space deep to the muscle and this was sutured into position using 2 separate horizontal mattress 0 Vicryl sutures, incorporating the straps of the mesh in the usual fashion. Additional Marcaine was infiltrated. The muscle fascial layers were closed with interrupted 3-0 and 0 Vicryl sutures sequentially. The external oblique aponeurosis was closed with interrupted 3-0 Vicryl suture. [place]'s fascia was closed with running 3-0 Vicryl suture. The skin was approximated with a subcuticular 4-0 Vicryl suture. Steri-Strips and sterile dressings were applied. The patient tolerated the procedure well and was taken to the recovery room in stable condition. [id number]/[facility] #: [id number] BINTA
== END 2019-05-24 10:39 | disposition home or self-care (01) ==
LOC: OR 05:39
PROVIDERS: ATTEND Surgery
DX: K43.2 Incisional hernia without obstruction or gangrene (principal); Z72.0 Tobacco use
CPT/HCPCS: C1781; J0690; J1100; J1885; J2250; J2405; J2704; J3010; J3490